=== PATIENT | female | born 1950 | race Caucasian/White ===

== ENCOUNTER 2021-03-06 12:13 | Day surgery (SDC) | payer OTHER ==
[~2021-03-06] VITALS: Ht 154.9 cm; Wt 93.9 kg
--- NOTE | ~2021-03-06 | O ---
[facility] [place] [address] OPERATIVE REPORT Name: AQUILINO ST Room #: DEP [facility] M.R.#: [id number] Admission: 03/06/21 Attend Phys: Caryn Hackett, Discharge: 03/06/21 Date of : 50 Report #: [id number] THIS REPORT FOR: cc: Gurmeet Saunders MD, Steven M. 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 PROCEDURE PERFORMED: Left distal radius osteotomy with fixation. SURGEON: Dr. Caryn Hackett. TYPE OF ANESTHESIA: General mask anesthesia. ESTIMATED BLOOD LOSS: 1 mL. TOURNIQUET TIME: 98 minutes. COMPLICATIONS: None. CONDITION: Stable. DISPOSITION: Recovery room. IMPLANTS USED: Arthrex volar distal radius locking plate. COMPLICATIONS: None. CONDITION: Stable. INDICATIONS: The patient is a 70-year-old female with the above-mentioned diagnosis. She elects for operative treatment. The risks, benefits, alternatives and complications were discussed including but not limited to infection, damage to vessels, nerves, incomplete relief or worsening of any symptoms, nonunion, malunion, hardware failure, hardware irritation, and stiffness. Informed consent was obtained, the correct extremity was identified and labeled by myself after verbal confirmation of the patient as well as visual confirmation and signed informed consent. DESCRIPTION OF PROCEDURE: The patient was brought to the operating room and [facility] [address] [place] [address] OPERATIVE REPORT Name: AQUILINO ST Room #: DEP [facility]..#: [id number] Admission: 03/06/21 Attend Phys: Caryn Hackett, Discharge: 03/06/21 Date of : 50 Report #: [id number] placed in supine position. She received preoperative antibiotics. Tourniquet was placed over padding, patient's left lower extremity was sterilely prepped and draped in the usual fashion. Timeout was taken to verify correct patient, procedure, operative site, all concurred. The arm was elevated, exsanguinated and tourniquet inflated. The right DRUJ was assessed prior to me scrubbing in. The left was then assessed using fluoroscopic guidance with forearm supination and the ulna easily dislocated volarly in neutral forearm rotation. I was able to easily sublux the ulna and completely dislocate the ulnar volarly. This was confirmed using fluoroscopy. Next, the volar approach was done to the distal radius over the FCR tendon. The dissection was carried down through fascia with tenotomy scissors. The sheath was identified and incised. The subsheath was incised. The volar contents were retracted ulnarly. The radial aspect of the pronator quadratus was incised and the pronator was elevated off the volar aspect of the distal radius. A narrow Arthrex distal radius locking plate was placed on to the bone. This was nearly too large, but was felt to be appropriate and incised. Next, the plate guide for an osteotomy was used and set to about 25-30 degrees and the plate was placed on to the bone distally. Three holes were drilled for the locking holes. Next, the plate was removed and the osteotomy was performed using soft tissue protection. Next, the 3 distal locking holes were filled and the correction was performed. The plate was able to be flushed down to the bone and a cortical screw in the gliding hole was placed. Initially cortical screws were placed into the distal radius, one of these was felt to be too long and it was changed to a locking screw. Of note, this patient's bone was extremely small. It was also narrow. Next, the remaining cortical screws were placed into the shaft and the radial styloid screws were drilled, measured, and appropriate size screws were placed. Careful attention was placed to avoid any dorsal penetration. The radius looked to be in excellent condition. There was jew of tilt to approximately neutral. The DRUJ was assessed at this point and then it was very stable. Extensive examination was undertaken to ensure stability of the radius. I stressed the ulna under fluoroscopy and it did not dislocate. There was a similar movement compared to her other side. I spent a significant portion of time rotating in various wrist motions and there was no subluxation of the ulna. At this point, I elected to not perform any type of stabilization for the distal radial ulnar joint. It was stable in all planes of rotation. Next, a demineralized bone matrix was placed into the osteotomy site. The wound was irrigated gently. The pronator quadratus was loosely reapproximated over the plate with 4-0 Vicryl suture. The skin was closed with 4-0 Monocryl and Steri-Strips. The patient's wound was infiltrated with approximately 5 mL of 0.25% Marcaine. She was placed into a bulky dressing and a sugar tong type splint with the forearm in pronation. All fingers were pink, brisk capillary refill at the conclusion of [facility] [address] [place] [address] OPERATIVE REPORT Name: AQUILINO ST [id number] Admission: 03/06/21 Attend Phys: Caryn Hackett, Discharge: 03/06/21 Date of : 50 Report #: [id number] case after deflation of tourniquet. All sponge and needle counts were correct. The patient transferred to postoperative recovery room in stable condition. By: 0626 [id number] Caryn Hackett MD /ivneet
[~2021-03-06 12:13] MED LIST: ANTIVERT25 MG PO; ASPIRIN EC81 M1 PO; BUSPIRONE HCL10 MG PO; CALCIUM500 MG PO; CLONAZEPAM 0.50.5 M1 PO; CRESTOR20 MG PO; DAILY VITE1 EAC1 PO; FLEXERIL PO; FLOVENT HFA 4444 MCG INH; FOSAMAX 70 MG T70 MG PO; IBUPROFEN 600600 M1 PO; IBUPROFEN 800800 M1 PO; NEURONTIN 300M300 M2 PO; OMEPRAZOLE40 MG PO; PEPCID20 MG PO; PROVENTIL HFA6.7 G1 INH; RESTORIL15 MG PO; RISPERDAL2 MG PO; SERTRALINE HCL100 MG PO; SERTRALINE HCL50 MG PO; SINGULAIR 10 MG10 M1 PO; SYNTHROID50 MCG PO; TRAZODONE HCL50 MG PO; ULTRAM 50MG TAB50 MG PO; VITAMIN D350 MC3 PO
[2021-03-06 13:25] VITALS: BP 161/76
[2021-03-06 17:30] VITALS: BP 161/76
--- NOTE | 2021-03-07 07:23 | EKG ---
[address] [address] ELECTROCARDIOGRAM REPORT Name: AQUILINO ST Room #: [address] [place] [address]#: [id number] Admission: 03/06/21 Attend Phys: Caryn Hackett, Discharge: Date of : 50 Report #: [id number] 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
== END 2021-03-06 18:15 | disposition home or self-care (01) ==
LOC: TBA 12:13 → OR 12:13 → TBA 12:14 → OR 16:17
PROVIDERS: ATTEND Orthopaedic Surgery Hand Surgery
DX: S52.502P Unspecified fracture of the lower end of left radius, subsequent encounter for closed fracture with malunion (principal); M25.532 Pain in left wrist; J45.909 Unspecified asthma, uncomplicated; G47.30 Sleep apnea, unspecified; F32.9 Major depressive disorder, single episode, unspecified; K21.9 Gastro-esophageal reflux disease without esophagitis; Z98.890 Other specified postprocedural states; Z79.899 Other long term (current) drug therapy; Z20.822 Contact with and (suspected) exposure to COVID-19; Z79.82 Long term (current) use of aspirin; Z88.0 Allergy status to penicillin; Z88.8 Allergy status to other drugs, medicaments and biological substances; X58.XXXD Exposure to other specified factors, subsequent encounter
CPT/HCPCS: 50010; 50101; 50386; 50951; 56524; 56526; 57006; 57091; 57178; 58999; 59001; 59002; 62110; 62900; 70005